=== PATIENT | male | born 2000 | race Caucasian/White ===

== ENCOUNTER 2021-03-03 07:53 | Outpatient (CLI) | payer MEDICAID ==
[2021-03-03 11:48] LABS: CALCIUM 9.1 mg/dL (8.5-10.3); POTASSIUM 4.1 mmol/L (3.5-5.0)
[2021-03-03 12:07] LABS: THYROID STIMULATING HORMONE 1.59 uIU/mL (0.34-5.60)
== END 2021-03-03 07:54 | disposition home or self-care (01) ==
LOC: LAB.N 07:53
PROVIDERS: ATTEND Family Medicine
DX: E16.1 Other hypoglycemia (principal)
CPT/HCPCS: 36415; 80048; 84443

== ENCOUNTER 2021-04-23 08:43 | Emergency (ER) | payer MEDICAID ==
[2021-04-23 08:59] VITALS: BP 127/69
--- NOTE | 2021-04-23 09:22 | ED Physician Documentation ---
History of Present Illness - Stated complaint Stated Complaint: COUGH/FEVER - Chief complaint Chief Complaint: General - History obtained from History obtained from: Patient, Family - History of Present Illness Timing: How many days ago (3) - Additonal information Additional information: Previously well 20-year-old male has gone in to get his first dose of the Moderna vaccine 4 days ago. The day following that he developed a bit of a cough and he has not felt well with aches and fever and he took some DayQuil which helped a bit. He has decided to come to the emergency department when this lasted for the third day. He does not feel particularly ill. He does not usually have a cough. Review of Systems Constitutional: reports: Fever, Myalgias, Fatigue Eyes: denies: Decreased vision Ears: denies: Ear pain Nose: reports: Congestion Throat: reports: Sore throat (resolved) Cardiac: denies: Chest pain / pressure, Palpitations Respiratory: reports: Cough. denies: Dyspnea GI: denies: Abdominal Pain, Nausea, Vomiting : denies: Dysuria, Frequency PD PAST MEDICAL HISTORY - Present Medications Home Medications: Ambulatory Orders Medication Instructions Recorded Confirmed Amox/Clav 875/125 [Augmentin] 1 each PO Q12H #20 tablet 04/23/21 - Allergies Allergies/Adverse Reactions: Allergies Allergy/AdvReac Type Severity Reaction Status Date / Time No Known Drug Allergies Allergy Verified 04/23/21 08:59 PD ED PE NORMAL - Vitals Vital signs reviewed: Yes (Normal and afebrile) - General General: Alert and oriented X 3, No acute distress, Well developed/nourished - HEENT HEENT: Atraumatic, PERRL, EOMI, Pharynx benign, Other (Left TM is minimally erythematous with retained landmarks the right is erythematous with rounding of the umbo.) - Neck Neck: Supple, no meningeal sign, No bony TTP - Cardiac Cardiac: RRR, No murmur - Respiratory Respiratory: No respiratory distress, Clear bilaterally - Abdomen Abdomen: Normal bowel sounds, Soft, Non tender, Non distended, No organomegaly - Back Back: No CVA TTP, No spinal TTP - Derm Derm: Normal color, Warm and dry, No rash - Extremities Extremities: No deformity, No edema - Neuro Neuro: Alert and oriented X 3, locomotive firer 2-12 intact, No motor deficit, No sensory deficit, Normal speech Eye Opening: Spontaneous Motor: Obeys Commands Verbal: Oriented GCS Score: 15 - Psych Psych: Normal mood, Normal affect Results - Vitals Vitals: Vital Signs - 24 hr 04/23/21 08:55 Temperature 36.7 C Heart Rate 77 Respiratory 15 Rate Blood Pressure 127/69 O2 Saturation 98 Oxygen O2 Source Room air PD MEDICAL DECISION MAKING - ED course Complexity details: considered differential, d/w patient, d/w family ED course: 20-year-old male with recent Covid vaccination has what sounds like vaccination side effects and he has also developed a cough. On examination he has otitis. He is fully vaccinated otherwise. He has not had to his knowledge problems with otitis media. Today he has this on examination and may be what is related to his cough. His symptoms are otherwise mild and treatment is not necessarily indicated. I discussed this with the patient including providing him [id number] instructions and a prescription. I have indicated the patient that a general reaction to the vaccination is best treated with extra fluids and Tylenol and repeated doses of Tylenol. I have encouraged the patient to follow- up to get his second shot. I did not feel the patient had sufficient exposure to Covid to consider this. He does work in a [employer] shop all of the employees there are fully vaccinated. He does not otherwise have exposure. Departure - Departure Disposition: 01 Home, Self Care Clinical Impression: Vaccine reaction Qualifiers: Encounter type: initial encounter Qualified Code(s): T50.Z95A - Adverse effect of other vaccines and biological substances, initial encounter Otitis media Qualifiers: Otitis media type: suppurative Chronicity: acute Laterality: right Recurrence: non-recurrent Spontaneous tympanic membrane rupture: without spontaneous rupture Qualified Code(s): H66.001 - Acute suppurative otitis media without spontaneous rupture of ear drum, right ear Condition: Stable Instructions: ED Ear Infec Wait See Abx Tx Ch, Vaccine Specific Info Follow-Up: [facility] [Provider Group] Prescriptions: Amox/Clav 875/125 [Augmentin] 1 each PO Q12H #20 tablet
== END 2021-04-23 09:32 | disposition home or self-care (01) ==
LOC: ED 08:43
DX: R50.83 Postvaccination fever (principal); M79.10 Myalgia, unspecified site; R53.83 Other fatigue; T50.B95A Adverse effect of other viral vaccines, initial encounter; H66.001 Acute suppurative otitis media without spontaneous rupture of ear drum, right ear
CPT/HCPCS: 99282; 99283

== ENCOUNTER 2021-06-15 14:58 | Outpatient (CLI) | payer MEDICAID ==
--- NOTE | 2021-06-15 15:22 | XRAY Report ---
PROCEDURE: Wrist 4 View RT INDICATIONS: R WRIST PX TECHNIQUE: 4 views of the wrist were acquired. COMPARISON: None FINDINGS: Bones: No fractures or dislocations. No suspicious bony lesions. Scaphoid view: No trauma found. Soft tissues: No suspicious soft tissue calcifications. IMPRESSION: No trauma found, source of pain is not identified. Reviewed by: Dandy Moya MD on 06/15/2021 3:20 PM PDT Approved by: Dandy Moya MD on 06/15/2021 3:20 PM PDT Station ID: [id number]
== END 2021-06-15 23:59 | disposition home or self-care (01) ==
LOC: DI.N 14:58
PROVIDERS: ATTEND Family Medicine
DX: M25.531 Pain in right wrist (principal)